=== PATIENT | male | born 2000 | race Caucasian/White ===

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

== ENCOUNTER 2021-06-15 | Emergency (ER) | payer MEDICAID ==
[~2021-06-15] VITALS: Ht 177.8 cm; Wt 82.4 kg
[~2021-06-15] MED LIST: METO10TA81 PO; RANI-376 PO
--- NOTE | 2021-06-15 01:54 | PHYS DOC ---
Past Medical History Past Medical History: No Pertinent History Past Surgical History: Tonsillectomy Smoking Status: Never Smoker Alcohol Use: None Drug Use: Marijuana General Adult EDM: Chief Complaint: CHEST WALL PAIN HPI: HPI: Patient is a 20 year old male who presents with chest wall tenderness x 1 week. Patient states he had chest compressions done a week ago after a drug overdose and has had constant and worsening chest wall tenderness since. Reports he smoked marijuana that was apparently laced with a other narcotic. EMS was called and had to resuscitate him. Patient had been transported to and ended up eloping prior to being seen. He has not been able to take anything for the pain since he is "homeless". He states it is very painful to breathe. He is also having left elbow pain and swelling x 3 days. He denies any trauma to the elbow. Patient also has numerous skin wounds across his chest, back, and arms that he says he's had for a long time. He otherwise denies any other symptoms. Review of Systems: Review of Systems: Constitutional: Denies fever or chills HENT: Denies nasal congestion or sore throat Respiratory: Denies cough or shortness of breath Cardiovascular: Denies chest pain or palpitations GI: Denies abdominal pain, nausea, or vomiting Musculoskeletal: Reports chest wall pain, Report left elbow pain and swelling Integument: Reports multiple skin lesions across chest, back, and arms Neurologic: Denies headache or focal weakness Complete systems were reviewed and found to be within normal limits, except as documented in this note. Heart Score: C/O Chest Pain: N/A Allergies: Allergies: Allergies Coded Allergies Type Severity Reaction Last Updated Verified No Known Drug Allergies 07/08/19 No Physical Exam: PE: Constitutional: No acute distress, non-toxic appearance HENT: Normocephalic, atraumatic Eyes: Conjunctiva normal, no discharge Neck: Normal range of motion, supple Lungs & Thorax: Significant tenderness to palpation of midline chest, Equal chest rise and fall, No bruising or erythema to chest wall Abdomen: Soft, no tenderness Skin: Numerous chronic-appearing lesions on chest wall and back, Scratches on bilateral forearms, Eczematous rash scattered along bilateral arms Extremities: Tenderness and swelling to left elbow, limited ROM left elbow Neurologic: Alert and oriented X 3, no focal deficits noted Psychologic: Affect normal, judgment normal EKG: EKG: @0202: normal sinus rhythm at 60 bpm, incomplete RBBB, VT 182, QRS 106, QT/QTc 396/396. Radiology/Procedures: Radiology/Procedures: PROCEDURE: CT CHEST WO CONTRAST EXAM: CT Chest without IV contrast CLINICAL HISTORY: Reason: chest pain, hx of chest compressions s/p OD, eval for rib fractures / Spl. Instructions: / History: COMPARISON: None. TECHNIQUE: CT of the chest without intravenous contrast. Axial, coronal and sagittal reformatted images were generated. ---PQRS compliance statement - One or more of the following individualized dose reduction techniques were utilized for this study: 1. Automated exposure control 2. Adjustment of the mA and/or kV according to patient size 3. Use of iterative reconstruction technique--- FINDINGS: Lack of intravenous contrast limits evaluation of solid organs, vasculature, and lymph nodes. Chest: Heart is not enlarged. No pericardial effusion. No pleural effusion. No pneumothorax. No axillary lymphadenopathy. Within the constraints of this noncontrast examination, no hilar or mediastinal lymphadenopathy. Anterior mediastinal soft tissue density likely residual thymus. A 1.9 x 1.2 cm nodular opacity in the right lower lobe (image 35) is seen. In the middle lobe anterio rly there is a 1.6 x 1.3 cm nodular opacity. Visualized Upper abdomen: Unremarkable Bones: Acute nondisplaced fracture of the anterior left second and third ribs. IMPRESSION: 1. Acute nondisplaced fractures of the anterior left second and third ribs. 2. Nodular opacities bilaterally including a 1.9 cm right lower lobe opacity, possibly focal consolidation. Underlying lung nodule, infectious/inflammatory process or septic emboli could have this appearance. Short interval follow-up in 6-12 weeks following treatment is recommended. Electronically signed by: Shahzad Stoner MD (06/15/2021 2:44 AM) [facility] ELBOW LEFT 3V EXAM: 3 views of the left elbow DATE: 06/15/2021 2:24 AM INDICATION: Reason: pain / Spl. Instructions: / History: COMPARISON: No Prior FINDINGS: No elbow joint effusion. No acute fracture or dislocation. Mild soft tissue swelling overlying the olecranon. IMPRESSION: No acute fracture or dislocation. Mild soft tissue swelling overlying the olecranon. Electronically signed by: Shahzad Stoner MD (06/15/2021 2:44 AM) [facility] Course & Med Decision Making: Course & Med Decision Making Pertinent Imaging studies reviewed. (See chart for details) Patient presented for chest wall tenderness s/p chest compressions [address] chest was ordered which showed anterior non-displaced fractured left ribs 2 and 3 as well as a nodular opacity in right lower lobe. X-ray left elbow showed mild soft tissue swelling. Dexamethasone was given in the ED for inflammation and elbow was wrapped with john bandage. Patient was given antibacterial ointment for his skin lesions. Antibiotics and pain medication were sent with good Rx card. Patient was given instructions on how to use incentive spirometer. Patient stable for discharge with outpatient follow-up with PCP. Discussed findings and plan with patient, who acknowledges understanding and agreement. Sadie Disclaimer: Sadie Disclaimer: This electronic medical record was generated, in whole or in part, using a voice recognition dictation system. Splinting Splinting : Location: Left elbow Pre-Made Type: JOHN bandage Pre-Proc Neuro Vasc Exam: normal Post-Proc Neuro Vasc Exam: normal, unchanged from pre-exam Departure Departure Impression: Primary Impression: Closed rib fracture Qualified Codes: S22.41XA - Multiple fractures of ribs, right side, initial encounter for closed fracture Additional Impressions: Lung consolidation Skin lesions, generalized Olecranon bursitis of left elbow Disposition: 01 HOME / SELF CARE / HOMELESS Condition: STABLE Referrals: NO PCP (PCP) Patient Instructions: Elastic Bandage and RICE, Incentive Spirometer, Insect Bite, [id number], Olecranon Bursitis, [id number], Rib Fracture, [id number] Additional Instructions: Do not soak your wound. You may shower. Clean wound daily with soap and water. Use provided antibiotic ointment with each dressing change. Use [id number] ibuprofen and or Tylenol for pain or discomfort. Scripts Azithromycin (ZITHROMAX) 250 Mg Tablet 1 PKG PO UD for bronchitis, #6 TAB Take 2 tablets on day 1 and then 1 tablet each day for the next 4 days as directed Prov: OBEY SHARMA DO 06/15/21 Hydrocodone Bit/Acetaminophen (HYDROCODONE-APAP 5-325 ) 1 Tab Tablet 0.5-1 TAB PO PRN Q6HRS PRN for PAIN, #10 TAB 0 Refills Prov: OBEY SHARMA DO 06/15/21 OBEY SHARMA DO Jun 15, 2021 01:54
[2021-06-15] MEDS ORDERED: DEXAMETHASONE 4 MG TABLET PO ONE (02:30)
[2021-06-15] MEDS ORDERED: KETOROLAC 30 MG/ML VIAL. IM ONE (02:30)
--- NOTE | 2021-06-15 02:46 | RAD ---
EXAM: CT Chest without IV contrast CLINICAL HISTORY: Reason: chest pain, hx of chest compressions s/p OD, eval for rib fractures / Spl. Instructions: / History: COMPARISON: None. TECHNIQUE: CT of the chest without intravenous contrast. Axial, coronal and sagittal reformatted imag es were generated. ---PQRS compliance statement - One or more of the following individualized dose reduction techniques were utilized for this study: 1. Automated exposure control 2. Adjustment of the mA and/or kV according to patient size 3. Use of iterative reconstruction technique--- FINDINGS: Lack of intravenous contrast limits evaluation of solid organs, vasculature, and lymph nodes. Chest: Heart is not enlarged. No pericardial effusion. No pleural effusion. No pneumothorax. No axillary lym phadenopathy. Within the constraints of this noncontrast examination, no hilar or mediastinal lymphad enopathy. Anterior mediastinal soft tissue density likely residual thymus. A 1.9 x 1.2 cm nodular opa city in the right lower lobe (image 35) is seen. In the middle lobe anteriorly there is a 1.6 x 1.3 c m nodular opacity. Visualized Upper abdomen: Unremarkable Bones: Acute nondisplaced fracture of the anterior left second and third ribs. IMPRESSION: 1. Acute nondisplaced fractures of the anterior left second and third ribs. 2. Nodular opacities bilaterally including a 1.9 cm right lower lobe opacity, possibly focal consoli dation. Underlying lung nodule, infectious/inflammatory process or septic emboli could have this appe arance. Short interval follow-up in 6-12 weeks following treatment is recommended. Electronically signed by: Shahzad Stoner MD (06/15/2021 2:44 AM) [facility]
--- NOTE | 2021-06-15 02:47 | RAD ---
EXAM: 3 views of the left elbow DATE: 06/15/2021 2:24 AM INDICATION: Reason: pain / Spl. Instructions: / History: COMPARISON: No Prior FINDINGS: No elbow joint effusion. No acute fracture or dislocation. Mild soft tissue swelling overlying the ol ecranon. IMPRESSION: No acute fracture or dislocation. Mild soft tissue swelling overlying the olecranon. Electronically signed by: Shahzad Stoner MD (06/15/2021 2:44 AM) DANIEL
[2021-06-15] MEDS ORDERED: AZIT250T PO ×2 (02:59→03:11)
[2021-06-15 03:00] VITALS: BP 108/58
[2021-06-15] MEDS ORDERED: MUPIROCIN 2 % OINTMENT 22GM TUBE. TP ONE (03:00)
[2021-06-15] MEDS ORDERED: HYDR-2761 PO (03:10)
--- NOTE | 2021-06-15 04:44 | EKG ---
[facility] [address] [place] [address] Test Date: 2021-06-15 Test Time: 02:02:38 Pat Name: ANNE LEDESMA Department: Room: Gender: M Die Sizer: : 2000 Requested By: OBEY SHARMA Order Number: [id number] Reading MD: Fortino Harrell Measurements Intervals [place] Rate: 60 P: 54 NM: 182 QRS: 90 QRSD: 106 T: 26 QT: 396 QTc: 396 Interpretive Statements SINUS RHYTHM Electronically Signed On 06-18-2021 15:22:31 [employer] by Fortino Harrell
== END 2021-06-15 03:20 | disposition home or self-care (01) ==
LOC: ER
DX: S22.41XA Multiple fractures of ribs, right side, initial encounter for closed fracture (principal); J18.1 Lobar pneumonia, unspecified organism; M70.22 Olecranon bursitis, left elbow; L98.8 Other specified disorders of the skin and subcutaneous tissue; X58.XXXA Exposure to other specified factors, initial encounter; Y92.89 Other specified places as the place of occurrence of the external cause; Y93.89 Activity, other specified; Y99.8 Other external cause status
CPT/HCPCS: 71250; 73080; 93005; 96372; 99284; J1885; A6450; 99285-25